=== PATIENT | male | born 1955 | race African-American/Black ===

== ENCOUNTER 2018-07-15 06:56 | Emergency (ER) | payer OTHER ==
[~2018-07-15] VITALS: Ht 165.1 cm; Wt 82.7 kg
[2018-07-15] MEDS ORDERED: ZOFRAN ODT8 MG PO (07:14)
[2018-07-15 07:29] VITALS: BP 194/103; PULSE 63; TEMP 98.7
== END 2018-07-15 07:30 | disposition home or self-care (01) ==
LOC: COL.ER 06:56
DX: R53.81 Other malaise (principal); I10 Essential (primary) hypertension

== ENCOUNTER 2020-01-30 19:55 | Inpatient (IN) | payer OTHER ==
[~2020-01-30] VITALS: Ht 165.1 cm; Wt 99.3 kg
[~2020-01-30 19:55] MED LIST: ZOFRAN ODT8 MG PO
[2020-01-30 20:45] LABS: BASO % 0.1 % (0.0-2.0); EOS # 0.1 (0.0-0.7); EOS % 0.6 % (0-4.0); GRAN # 6.5 (1.4-6.5); GRAN % 69.3 % (42.2-75.2); HEMATOCRIT 37.9 % (42.0-52.0); HEMOGLOBIN 12.3 g/dl (13.5-18.0); LYMPH # 1.6 (1.2-3.4); MEAN CELL VOLUME 90 fl (80.0-100.0); MEAN CORPUSCULAR HEMOGLOBIN 29 pg (27.0-31.0); MEAN CORPUSCULAR HGB CONC 33 g/dl (33.0-37.0); MEAN PLATELET VOLUME 9.1 fl (7.4-10.4); MONO # 1.2 (0.1-0.6); MONO % 12.7 % (1.7-9.3); PLATELET COUNT 236 K/mm3 (130-400); REDCELL DISTRIBUTION WIDTH-CV 12.2 % (11.5-14.5)
[2020-01-30 20:56] LABS: ALBUMIN 4.4 gm/dL (3.5-5.0); BILIRUBIN,TOTAL 0.7 mg/dL (0.0-1.0); CREATININE, serum 1.06 (0.66-1.25); POTASSIUM 3.6 mmol/L (3.4-5.0)
[2020-01-30 21:08] LABS: C-REACTIVE PROTEIN 14.5 mg/dL (0.0-0.9)
[2020-01-30 21:17] LABS: ERYTHROCYTE SEDIMENTATION RATE 58 mm/hr (0-30)
[2020-01-30] MEDS ORDERED: NORVASC 10MG10 MG PO (23:40)
[2020-01-30] MEDS ORDERED: GLUCOPHAGE XR500 M1 PO (23:40)
[2020-01-30] MEDS ORDERED: NATURAL ODORLE400 MG PO (23:41)
[2020-01-30] MEDS ORDERED: HYZAAR 25 MG-101 TAB PO (23:41)
[2020-01-30] MEDS ORDERED: MULTI VITAMINS1 TAB PO (23:41)
[2020-01-30] MEDS ORDERED: CALCIUM 600/VIT1 CA1 PO (23:42)
[2020-01-30] MEDS ORDERED: ginseng (23:42)
[2020-01-31 00:05] VITALS: BP 159/63; PULSE 107; TEMP 100.2
--- NOTE | 2020-01-31 02:35 | NUR ---
PATIENT DOING WELL TONIGHT. ALERT AND ORIENTED. PAIN RATED A 6/10 TO R HIP. ICE APPLIED. BP MEDICATIONS GIVEN TONIGHT PER DOCTORS ORDERS. IVF INFUSING. NO FURTHER NEEDS AT THIS TIME.
[2020-01-31 05:39] VITALS: BP 130/56; PULSE 85; TEMP 98.1
--- NOTE | 2020-01-31 07:50 | NUR ---
PATIENT AMBULATING IN HALLS WITH THERAPY.
[2020-01-31 08:03] LABS: BASO % 0.3 % (0.0-2.0); EOS # 0.1 (0.0-0.7); EOS % 0.6 % (0-4.0); GRAN # 5.1 (1.4-6.5); GRAN % 64.2 % (42.2-75.2); HEMOGLOBIN 11.3 g/dl (13.5-18.0); LYMPH # 1.5 (1.2-3.4); LYMPH % 18.9 % (20.0-51.0); MEAN CELL VOLUME 93 fl (80.0-100.0); MEAN CORPUSCULAR HEMOGLOBIN 30 pg (27.0-31.0); MEAN CORPUSCULAR HGB CONC 32 g/dl (33.0-37.0); MEAN PLATELET VOLUME 9.6 fl (7.4-10.4); MONO # 1.3 (0.1-0.6); MONO % 15.9 % (1.7-9.3); PLATELET COUNT 235 K/mm3 (130-400); RED BLOOD COUNT 3.76 M/mm3 (4.20-5.60); REDCELL DISTRIBUTION WIDTH-CV 12.5 % (11.5-14.5)
[2020-01-31 08:07] LABS: HEMATOCRIT 35.1 % (42.0-52.0)
[2020-01-31 08:11] LABS: CREATININE, serum 1.1 (0.66-1.25); POTASSIUM 3.3 mmol/L (3.4-5.0)
[2020-01-31 08:24] VITALS: BP 142/62; PULSE 88; TEMP 98.7
--- NOTE | 2020-01-31 10:57 | NUR ---
PATIENT DOWN TO MRI BY WHEELCHAIR.
--- NOTE | 2020-01-31 11:10 | NUR ---
PATIENT GOING DOWN TO MRI VIA WC
--- NOTE | 2020-01-31 11:18 | NUR ---
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 No needs right now.
--- NOTE | 2020-01-31 12:00 | NUR ---
PATIENT AMBULATING IN HALLS AGAIN. GAIT SLOW, BUT STEADY.
[2020-01-31 12:11] VITALS: BP 151/66; PULSE 102; TEMP 98.5
[2020-01-31 13:26] LABS: MUCOUS Present /lpf; PH 5 (5-8); SQUAMOUS EPITHELIAL None Seen /hpf; URINE APPEARANCE Hazy; URINE BACTERIA None Seen /hpf; URINE BILIRUBIN Negative (NEGATIVE); URINE BLOOD Negative (NEGATIVE); URINE COLOR Yellow; URINE GLUCOSE Negative (NEGATIVE); URINE KETONE Trace (NEGATIVE); URINE LEUKOCYTE ESTERASE Negative (NEGATIVE); URINE NITRATE Negative (NEGATIVE); URINE PROTEIN(semi-quant) Negative (NEGATIVE); URINE RBC 0-2 /hpf; URINE UROBILINOGEN Negative (NEGATIVE)
--- NOTE | 2020-01-31 13:30 | NUR ---
SW met with the patient to discuss discharge plan. The patient lives in [place] with his , Beverley (ph#[phone]). He reports independence with ADLs and does not have any DME. The patient receives primary care at [facility] and he receives his medications on [address]. He reports no difficulties obtaining his meds. The patient does not have advanced directives completed. The patient plans to return home with his upon discharge. No additional needs at this time.
[2020-01-31 14:38] LABS: COLLECTION METHOD RANDOM VOIDED
[2020-01-31 15:50] VITALS: BP 130/58; PULSE 92; TEMP 98.7
[2020-01-31 19:45] VITALS: BP 129/59; PULSE 89; TEMP 99.3
--- NOTE | 2020-01-31 19:45 | NUR ---
Pt. laying in bed at this time. Pt. is A&OX3, assessment complete. INT to lt. ac patent. Pt. denies pain or other needs, call light within reach.
[2020-02-01] VITALS: BP 140/63; PULSE 89; TEMP 99.2
[2020-02-01 05:00] VITALS: BP 150/79; PULSE 81; TEMP 98.5
[2020-02-01 06:47] LABS: CALCIUM 8.4 mg/dL (8.4-10.2); CREATININE, serum 1.17 (0.66-1.25); MAGNESIUM 2.4 mg/dL (1.6-2.3); POTASSIUM 3.5 mmol/L (3.4-5.0)
[2020-02-01 08:08] VITALS: BP 147/67; PULSE 93; TEMP 98.4
--- NOTE | 2020-02-01 10:30 | NUR ---
Patient has been doing well this morning. He stated his pain is a lot better and he can get up and walk around. He continues to be sore but did not require additional pain medications. No other changes at this time. Call light within reach.
[2020-02-01 11:35] VITALS: BP 133/85; PULSE 72; TEMP 97.6
[2020-02-01] MEDS ORDERED: NAPROSYN500 MG PO (12:23)
--- NOTE | 2020-02-01 13:52 | NUR ---
The patient is to discharge home today, 01/31 with his . SW met with the patient to address any concerns or needs before going home, none were identified.
--- NOTE | 2020-02-01 15:20 | NUR ---
Patient is discharging home. Discharge instructions discussed with patient. No questions verbalized. INT discontinued. All belongings packed up and sent with patient. Copies of discharge instructins sent with patient. Explained when follow up is. Patient is being walked out by Elodia MELENDEZ.
== END 2020-02-01 15:30 | disposition home or self-care (01) | DRG 558 ==
LOC: COL.ER 19:55 → SURG 22:08
PROVIDERS: Emergency Medicine; Physician Assistant; ADMIT Hospitalist
DX: M76.02 Gluteal tendinitis, left hip (principal); S76.011A Strain of muscle, fascia and tendon of right hip, initial encounter; M70.61 Trochanteric bursitis, right hip; I10 Essential (primary) hypertension; E87.6 Hypokalemia; E11.9 Type 2 diabetes mellitus without complications; Z79.84 Long term (current) use of oral hypoglycemic drugs; Z88.2 Allergy status to sulfonamides
CPT/HCPCS: 99223-AI; 99231-AI; 99239; J0696; J1170; J1885; J3370; J7030; J7050; Q9967

== ENCOUNTER 2021-08-04 19:27 | Emergency (ER) | payer OTHER ==
[~2021-08-04] VITALS: Ht 165.1 cm; Wt 95.5 kg
[~2021-08-04 19:27] MED LIST changes: +CALCIUM 600/VIT1 CA1 PO; +GLUCOPHAGE XR500 M1 PO; +HYZAAR 25 MG-101 TAB PO; +MULTI VITAMINS1 TAB PO; +NAPROSYN500 MG PO; +NATURAL ODORLE400 MG PO; +NORVASC 10MG10 MG PO; +ginseng
[2021-08-04 19:36] VITALS: TEMP 97.9
[2021-08-04 21:04] VITALS: BP 143/75; PULSE 85
== END 2021-08-04 21:04 | disposition home or self-care (01) ==
LOC: COL.ER 19:27
DX: M79.644 Pain in right finger(s) (principal); M79.89 Other specified soft tissue disorders